=== PATIENT | female | born 1970 | race Caucasian/White ===

== ENCOUNTER 2023-08-12 13:22 | Emergency (ER) | payer OTHER ==
[~2023-08-12] VITALS: Ht 165.1 cm; Wt 102.1 kg
--- NOTE | ~2023-08-12 | EKG ---
[facility] [address] [facility], [place] [address] Draft EKG completed, results pending confirmation PATIENT NAME: SKY MUIR Electrocardiogram DATE OF : 68 PHYSICIAN: PRELIMINARY REPORT #: [id number] REPORT IS CONFIDENTIAL AND NOT TO BE RELEASED WITHOUT AUTHORIZATION
[~2023-08-12 13:22] MED LIST: NP THYROID30 MG PO; PHENTERMINE HCL15 MG PO
[2023-08-12] MEDS ORDERED: DEXTROAMP-AMPHE15 MG PO (14:17)
[2023-08-12 14:47] LABS: MCH 31.2 (27-36); PLATELET COUNT 223 K/uL (140-440)
[2023-08-12 14:49] LABS: BASOPHILS 0.3 % (0-2); EOSINOPHILS 6.4 % (0-6); HEMATOCRIT 41.3 % (35.0-50.0); HEMOGLOBIN 13.6 g/dL (12.0-18.0); LYMPHOCYTES 25.1 % (24-44); MCV 94.7 fl (81-99); MONOCYTES 9.1 % (0-12); NEUTROPHILS 59.1 % (39-80); RBC 4.37 M/ul (4.3-5.7); RDW 12.9 (10.5-15.0)
[2023-08-12 15:11] LABS: ALBUMIN/GLOBULIN RATIO 1.11 (1.1-2.4); ANION GAP 13.7 (7-21); BILIRUBIN, TOTAL 0.3 ng/dL (0.2-1.0); BUN/CREATININE RATIO 23.52 (6.0-28.6); CALCIUM 9.5 mg/dL (8.5-10.1); CREATININE, SERUM 0.68 mg/dL (0.55-1.02); MAGNESIUM 2.1 mg/dL (1.8-2.4); POTASSIUM 3.7 mmol/L (3.5-5.1); PROTEIN, TOTAL 7.6 g/dL (6.4-8.2); TSH, 3RD GENERATION 2.16 uIU/mL (0.358-3.740)
[2023-08-12 16:16] LABS: AMPHETAMINES, URINE POSITIVE (NEGATIVE); BARBITURATES, URINE NEGATIVE (NEGATIVE); BENZODIAZEPINE, URINE NEGATIVE (NEGATIVE); BUPRENORPHINE, URINE NEGATIVE (NEGATIVE); CANNABINOID, URINE NEGATIVE (NEGATIVE); COCAINE, URINE NEGATIVE (NEGATIVE); ECSTASY, URINE NEGATIVE (NEGATIVE); FENTANYL, URINE NEGATIVE (NEGATIVE); METHADONE, URINE NEGATIVE (NEGATIVE); OPIATES, URINE NEGATIVE (NEGATIVE); OXYCODONE, URINE NEGATIVE (NEGATIVE); PHENCYCLIDINE, URINE NEGATIVE (NEGATIVE)
[2023-08-12 17:36] VITALS: BP 156/83
== END 2023-08-12 17:37 | disposition home or self-care (01) ==
LOC: ED 13:22
PROVIDERS: Emergency Medicine
DX: R00.2 Palpitations (principal); Z79.899 Other long term (current) drug therapy
CPT/HCPCS: 80053; 80307; 83735; 84436; 84443; 84484; 84703; 85025; 85379; 93005; 93010